=== PATIENT | male | born 1985 | race Two or more races ===

== ENCOUNTER → 2016-11-03 | Outpatient (CLI) | payer OTHER ==
--- NOTE | 2016-11-03 15:54 | RADRPT ---
PROCEDURE: XR left knee. CLINICAL INDICATION: Knee pain TECHNIQUE: AP weightbearing, lateral weight bearing and sunrise views available for review. COMPARISON: None available FINDINGS: The osseous structures are normal in mineralization, architecture and alignment. No fractures are i dentified. No osseous lesions are identified. The joints are unremarkable. The soft tissues are u nremarkable. IMPRESSION: Unremarkable examination RPTAT: HGDB .Altaf Simpson MD, MD Date Time Electronically viewed and signed by .Altaf Simpson MD, on 11/03/2016 15:54 .B/
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
== END | disposition home or self-care (01) ==
LOC: HKI 14:47
DX: M25.562 Pain in left knee (principal)
CPT/HCPCS: 73562; Z7500; G0463

== ENCOUNTER → 2016-12-01 | Outpatient (CLI) | payer OTHER ==
--- NOTE | 2016-12-02 03:19 | HKNOTE ---
DATE OF SERVICE: Patient comes in for preoperative evaluation. He is scheduled to have operative arthroscopy of the left knee on 12/07/2016. He needs to have the surgery by Dr. Rayna Najera. Numerous questions were asked and answered. Postoperative course was discussed, postoperative course was discussed with alex juan possible complications were discussed with him, and he was given medication for postoperative pain . . Dictated By: WERO SIMON/DENISE Conf#: [id number] DID#: [id number]
== END | disposition home or self-care (01) ==
LOC: HKI 13:20
DX: Z01.818 Encounter for other preprocedural examination (principal)
CPT/HCPCS: G0463

== ENCOUNTER 2016-12-07 06:23 | Day surgery (SDC) | payer OTHER ==
[2016-12-06 10:29] VITALS: BMI 26.9
[~2016-12-07] VITALS: Ht 180.3 cm; Wt 89.3 kg
[2016-12-07] VITALS (16 sets, daily range): BP systolic 81–135; BP diastolic 46–89; PULSE 82–112; RESP 11–24; Ht 180.3 cm; Wt 89.3 kg
[2016-12-07] MEDS ORDERED: DEXAMETHASONE 4 MG/ML 1 ML INJ IV ONE (06:45)
[2016-12-07] MEDS ORDERED: ONDANSETRON 4 MG INJ IV ONE (06:45)
[2016-12-07] MEDS ORDERED: CELECOXIB 200 MG CAP PO ONE (06:45)
[2016-12-07] MEDS ORDERED: LANSOPRAZOLE 30 MG CAP PO ONE (06:45)
[2016-12-07] MEDS ORDERED: LACTATED RINGER'S 1,000 ML IV* SCH (06:45)
[2016-12-07] MEDS ORDERED: oxyCODONE (CR) 10 MG TAB [oxyCONTIN] PO ONE (06:45)
[2016-12-07] MEDS ORDERED: ACETAMINOPHEN 1000MG/100ML IV 100 ML IVPB ONE (06:45)
[2016-12-07] MEDS ORDERED: VANCOMYCIN 1 GM (PMX) 250 ML IVPB ONE (06:45)
--- NOTE | 2016-12-07 07:03 | HPN ---
Date/Time of Note Date/Time of Note DATE: 12/07/16 TIME: 07:02 Interval H&P Admission Note Pt. seen H&P reviewed: No system changes LIOR BRIDGES PA-C Dec 07, 2016 07:03
[2016-12-07] MEDS ORDERED: BUPIVACAINE 0.25%/EPI (SDV) 30 ML INJ ONE (07:05)
[2016-12-07] MEDS ORDERED: ROPIVACAINE 0.5 % 30 ML VIAL ONE (07:05)
[2016-12-07] MEDS ORDERED: morphine SULFATE/PF (10 MG/10 ML) INJ ONE (07:06)
[2016-12-07] MEDS ORDERED: KETOROLAC 30 MG INJ ONE ×2 (07:06→07:38)
[2016-12-07] MEDS ORDERED: MIDAZOLAM 1 MG/ML 2 ML INJ ONE (07:26)
[2016-12-07] MEDS ORDERED: METOCLOPRAMIDE 10 MG INJ ONE (07:27)
[2016-12-07] MEDS ORDERED: PROPOFOL 20 ML ONE ×2 (07:38)
[2016-12-07] MEDS ORDERED: FENTAnyl 50 MCG/ML VIAL ONE (07:38)
[2016-12-07] MEDS ORDERED: EPHEDrine SULFATE 50 MG/5 ML SYG ONE (07:57)
[2016-12-07] MEDS ORDERED: HYDROmorphONE (0.2 MG/ML) 10ML SYG IV PRN ×2 (08:00)
[2016-12-07] MEDS ORDERED: DIPHENHYDRAMINE 50 MG INJ IV PRN (08:00)
[2016-12-07] MEDS ORDERED: MEPERIDINE 25 MG INJ IV PRN (08:00)
[2016-12-07] MEDS ORDERED: METOCLOPRAMIDE 10 MG INJ IV PRN (08:00)
[2016-12-07] MEDS ORDERED: ONDANSETRON 4 MG INJ IV PRN ×2 (08:00→09:30)
[2016-12-07] MEDS ORDERED: OXYCODONE/ACETAMINOPHEN (5/325) TAB PO PRN ×2 (08:00)
[2016-12-07] MEDS ORDERED: HYDROCODONE/APAP (5/325) TAB PO PRN (09:30)
[2016-12-07] MEDS ORDERED: HYDROCODONE/APAP (10/325) TAB PO PRN (09:30)
[2016-12-07] MEDS ORDERED: ACETAMINOPHEN 1000MG/100ML IV 100 ML IVPB SCH (09:30)
[2016-12-07] MEDS ORDERED: morphine 10 MG INJ IV PRN (09:30)
[2016-12-07] MEDS: HYDROmorphONE (0.2 MG/ML) 10ML SYG IV PRN ×2 (09:39→09:49)
--- NOTE | 2016-12-07 10:04 | OPR ---
DATE OF OPERATION: 12/07/2016 SURGEON: Yazan Guthrie MD OB/GYN PHYSICIAN: JAKE Felix PREOPERATIVE DIAGNOSES: 1. Torn anterior horn of the medial meniscus. 2. Damage to the articular weightbearing surface of the medial tibial plateau. POSTOPERATIVE DIAGNOSES: 1. Torn anterior horn of the medial meniscus. 2. Damage to the articular weightbearing surface of the medial tibial plateau. DISCUSSION: Patient had symptoms of an internal derangement of the knee. He had an unusual injury which is a tear of the anterior horn of the medial meniscus. In addition to that, he had a flap tea r of the weightbearing surface of the tibial plateau. The remarkable thing is that this was all pre dicted by the MRI scan. FINDINGS AT SURGERY: The patient's knee was found to completely normal except for: 1. Tear of the anterior horn of the medial meniscus. 2. Chondral flap of the medial tibial plateau. 3. Softening of the articular surface of the lateral tibial plateau. PROCEDURE: 1. Diagnostic arthroscopy. 2. Partial medial meniscectomy. 3. Chondroplasty of the medial tibial plateau. DESCRIPTION OF PROCEDURE: Under general anesthetic the left leg was prepared and draped in the usua l sterile fashion. Standard inferomedial and inferolateral portals were used. A tourniquet was mitch lied around his leg, but was never inflated at all. There was no need to inflate it. Standard inferomedial and inferolateral portals were used. The knee was systematically inspected an d the above findings were noted. Multiple photographs were taken. Using the motorized intra-articular shaver, the torn segment of the anterior horn of the medial meni scus was debrided. The remaining meniscus was balanced and stable. The tibial plateau was now prob ed and under the edge of the midpoint of the medial meniscus there was a large flap tear as a single structure which almost resembled a meniscus. This was now also debrided using a motorized intraart icular shaver. The camera was moved around the knee. The cruciate ligaments were found to be intac t. The patellofemoral joint was normal in appearance. The fluid in the knee was now aspirated. The wounds were closed using interrupted nylon and the kne e was injected with a mixture of Toradol and Duramorph. The usual sterile dressings were applied. There were no problems or complications at all. Dictated By: YAZAN SIMON/DENISE Conf#: [id number] DID#: [id number]
== END 2016-12-07 11:15 | disposition home or self-care (01) ==
LOC: SDS 06:23
DX: M23.212 Derangement of anterior horn of medial meniscus due to old tear or injury, left knee (principal)
CPT/HCPCS: 29881; J0131; J1100; J1170; J1885; J2250; J2274; J2405; J2765; J2795; J3010; J3370; Z7512; Z7610

== ENCOUNTER → 2016-12-13 | Outpatient (CLI) | payer OTHER ==
--- NOTE | 2016-12-13 15:32 | HKNOTE ---
DATE OF SERVICE: 12/13/2016 DATE OF SERVICE: 12/13/2016 HISTORY OF PRESENT ILLNESS: A 31-year-old male who presents today for postoperative visit status post 7 days from a left knee arthroscopy with medial meniscus debridement on 12/07/2016. Since the surgery, patient states that he has had pain typically at night when he goes to sleep. The pain can travel up to a 6/10 on the pain scale. During the day, patient states that pain is mild and manageable. At times of increased pain, he has been taking Kaycee 10/325 mg tablet as needed. The patient has been using left knee immobilizer from a previous arthroscopic surgery with an immobilizer that he had at home. Denies any falls. Continues to use crutches for assisted ambulation. Has not initiated any physical therapy. Denies any complications to the wound. Partial weightbearing with crutches. OBJECTIVE: VITAL SIGNS: Blood pressure is 125/80, temperature 98.2 degrees, pulse is 100, respiratory rate 14, height is 5 feet 11 inches, weight is 200 pounds. EXTREMITIES: Gait is abnormal with slight limp to the left knee. Stiffness to the knee with flexion. The patient is able to flex up to 100 degrees today. Full extension on exam. No tenderness to palpation. The patient does have numbness more along the lateral incision site. The sutures are intact with no signs of infection. Mild ecchymosis around the lateral incision site. No calf pain. PICTURES/IMAGING: From arthroscopic surgery were discussed with patient today, and copy was given. PLAN: 1. Continue pain medications as needed for moderate to severe pain. The patient may use anti-inflammatories for mild to moderate pain. 2. Suture removal performed today. Steri-Strips applied after suture removal. Wound care instructions given in detail. 3. Prescription for physical therapy provided for patient today. 4. The patient will follow up on 12/20/2016 for repeat evaluation and monitoring. Patient made aware that he may follow up sooner should there be any complication. If patient doing well at that time, I anticipate discharge from active care, and patient may continue with physical therapy. Dr. Nieto has also seen patient today. Dictated By: LIOR JOSEPH for WERO NIETO MD, KP/DENISE Conf#: [id number] [facility]#: [id number] MTDD
== END | disposition home or self-care (01) ==
LOC: HKI 13:28
DX: Z47.89 Encounter for other orthopedic aftercare (principal)

== ENCOUNTER → 2016-12-20 | Outpatient (CLI) | payer OTHER ==
--- NOTE | 2016-12-20 15:43 | HKNOTE ---
DATE OF SERVICE: 12/20/2016 SUBJECTIVE: A 31-year-old male status post left knee arthroscopy with partial medial meniscectomy and chondroplasty of the medial tibial plateau on 12/07/2016 , presents today for 14-day postop visit. Sutures removed on last visit. The patient states that he is having no pain complaints, but continues with weakness on extension. Denies any falls since he was last seen. Patient has complaints of muscle strength to the quadriceps tendon, primarily on the lateral side. Other than that, the patient states that he is doing much better and feels that he is getting more mobile. He has yet to initiate physical therapy postoperatively. OBJECTIVE: VITAL SIGNS: Blood pressure 105/69, temperature 98.7 degrees, pulse 115, respiratory rate 12, height 5 feet 11 inches, weight 200 pounds. GENERAL: Slight limp on ambulation. Normal sensory examination to light touch. Wound sites are clean, dry, and intact, and healing well. RIGHT KNEE: The patient has full flexion as he is able to flex up to 140 degrees, but there is about 15- to 20-degree lag from full extension with weakness. About 4/5 weakness on extension with resistance. 4+/5 strength on flexion. Negative Dejuan's test. No increased laxity to the MCL and LCL. ASSESSMENT AND PLAN: 1. Initiate physical therapy postoperatively with focus on strengthening flexors and extensors of the left knee. Also, focus on gait training as there is slight limp today. 2. Patient was seen with Dr. Nieto in office today as well, we have suggested the patient follow up in 1 week for close monitoring, especially with strengthening the quadriceps. 3. At-home therapy and exercises discussed in detail with patient today. Once again, the patient was seen with Dr. Nieto, and he agrees with the plan. Dictated By: LIOR JOSEPH for WERO NIETO MD, KP/DENISE Conf#: [id number] DID#: [id number] SHANTEL
== END | disposition home or self-care (01) ==
LOC: HKI 13:48
DX: Z47.89 Encounter for other orthopedic aftercare (principal)

== ENCOUNTER → 2016-12-28 | Outpatient (CLI) | payer OTHER ==
--- NOTE | 2016-12-28 16:35 | HKNOTE ---
DATE OF SERVICE: 12/28/2016 The patient presents today for 3 week postoperative visit status post left knee diagnostic arthroscopy with partial medial meniscectomy performed on 2016. The patient was last seen on 12/20/2016 with significant weakness on extension and inability to fully extend. The patient also had abnormal gait. Physical therapy was prescribed for patient and patient states that he has initiated physical therapy and has had about 2 to 3 sessions. His gait has returned to normal and he has had significant increase in his ability to extend the knee. The patient states that he has returned to full flexion. Patient is very pleased status post surgery as he states he has been feeling much better. Patient continues with aching/pain along the distal vastus lateralis region but states that his pain has gone down from a 6/10 to about 4/10 on the pain scale. His complaints of numbness along the medial incision has significantly improved as he states that he has little to no numbness at this time. OBJECTIVE VITAL SIGNS: Blood pressure is 123/72, temperature 98.6 degrees, pulse 114, respiratory rate is 12, height is 5 feet 11 inches, weight is 200 pounds. GENERAL: Gait is normal and nonantalgic. The patient has full range of motion with flexion and is able to fully extend. 4/5 strength on resistance with extension and 5/5 strength on resistance with flexion. Normal gait. Normal sensory examination to light touch. No tenderness to palpation. ASSESSMENT AND PLAN: The patient continues to improve with physical therapy. Continue physical therapy sessions on an outpatient basis. The patient also advised to continue at home exercise program. Maintain consistent strengthening and conditioning status post surgery. At this stage, the patient continues to do well and is discharged from active care through this office. Patient may follow up on as needed basis should he need to be seen in the future and he states understanding and compliance. Dr. Nieto has also seen this patient today and agrees with plan. Dictated By: LIOR JOSEPH for WERO NIETO MD, KP/DENISE Conf#: [id number] DID#: [id number] MTDD
== END | disposition home or self-care (01) ==
LOC: HKI 14:42
DX: Z47.89 Encounter for other orthopedic aftercare (principal)